=== PATIENT | male | born 1985 | race Caucasian/White ===

== ENCOUNTER 2016-07-30 15:08 | Emergency (ER) | payer OTHER ==
[~2016-07-30] VITALS: Ht 188 cm; Wt 87.1 kg
[~2016-07-30 15:08] MED LIST: FLOMAX PO; NOHOMEMEDICATIONS; PERCOCET 5-3251 EACH PO; PHENERGAN 25 MG25 M1 PO
[2016-07-30] MEDS ORDERED: ZOLOFT50 MG PO (15:11)
[2016-07-30] MEDS ORDERED: TRAZODONE HCL100 MG PO (15:11)
[2016-07-30] MEDS ORDERED: NORCO 5-325 TA1 EACH PO (15:31)
[2016-07-30 17:05] VITALS: BP 121/78
== END 2016-07-30 17:06 | disposition home or self-care (01) ==
LOC: ER 15:08
DX: S92.351A Displaced fracture of fifth metatarsal bone, right foot, initial encounter for closed fracture (principal); S82.831A Other fracture of upper and lower end of right fibula, initial encounter for closed fracture; F17.210 Nicotine dependence, cigarettes, uncomplicated; X58.XXXA Exposure to other specified factors, initial encounter; Y93.89 Activity, other specified; Y92.89 Other specified places as the place of occurrence of the external cause; Y99.9 Unspecified external cause status

== ENCOUNTER 2016-08-01 21:09 | Emergency (ER) | payer OTHER ==
[~2016-08-01] VITALS: Ht 188 cm; Wt 87.1 kg
[~2016-08-01 21:09] MED LIST changes: +NORCO 5-325 TA1 EACH PO; +TRAZODONE HCL100 MG PO; +ZOLOFT50 MG PO
[2016-08-01] MEDS ORDERED: IBUPROFEN 600600 M1 PO (22:28)
[2016-08-01] MEDS ORDERED: HYDROCODONE-AP1 EAC6 PO (22:28)
[2016-08-01 23:20] VITALS: BP 128/82
== END 2016-08-01 23:28 | disposition home or self-care (01) ==
LOC: ER 21:09
DX: S92.351G Displaced fracture of fifth metatarsal bone, right foot, subsequent encounter for fracture with delayed healing (principal); Z76.0 Encounter for issue of repeat prescription; X58.XXXA Exposure to other specified factors, initial encounter; Z87.442 Personal history of urinary calculi; F17.210 Nicotine dependence, cigarettes, uncomplicated; F10.99 Alcohol use, unspecified with unspecified alcohol-induced disorder